=== PATIENT | female | born 1985 ===

== ENCOUNTER 2020-06-10 16:00 | Inpatient (IN) | payer OTHER ==
[2020-06-10] MEDS ORDERED: LACTATED RINGERS SOLUTION 1,000 ML/1,000 ML INFUS.BAG IV SCH (17:30)
--- NOTE | 2020-06-10 17:30 | HP ---
Past Medical History - Primary Care Physician PCP:: Mike Estrada - Admission Chief Complaint: Lower abdominal pain History of Present Illness: 35 yo , KAYLA 06/11/20, EGA 39 weeks 6 days presented with the above No bleeding but loosing fluid per vagina. History Source: Patient Limitations to Obtaining History: No Limitations - Past Medical History ...: 2 ...Para: 1 ... Weeks Gestation by Dates: 39.6 ...EDC by Dates: 06/11/20 - Past Surgical History Past Surgical History: Yes: Laminectomy Hx Myomectomy: No Hx Transabdominal Cerclage: No - Smoking History Smoking history: Never smoked - Alcohol/Substance Use Hx Alcohol Use: No - Social History Usual Living Arrangement: Yes: With Significant Other Do you think of yourself as: Straight/Heterosexual History of Recent Travel: No Home Medications - Allergies Allergies/Adverse Reactions: Allergies Allergy/AdvReac Type Severity Reaction Status Date / Time No Known Allergies Allergy Verified 06/10/20 16:51 - Home Medications Home Medications: Ambulatory Orders Pnv No.95/Ferrous Fum/Folic AC [ Formula] 1 each PO DAILY 06/10/20 Family Medical History Family History: Denies Review of Systems - Review of Systems Constitutional: reports: No Symptoms Eyes: reports: No Symptoms HENT: reports: No Symptoms Neck: reports: No Symptoms Cardiovascular: reports: No Symptoms Respiratory: reports: No Symptoms Gastrointestinal: reports: No Symptoms Genitourinary: reports: No Symptoms Breasts: reports: No Symptoms Reported Musculoskeletal: reports: No Symptoms Integumentary: reports: No Symptoms Neurological: reports: No Symptoms Endocrine: reports: No Symptoms Psychiatric: reports: No Symptoms Physical Exam - Maternity Constitutional: Yes: Well Nourished Eyes: Yes: WNL HENT: Yes: WNL Neck: Yes: WNL Cardiovascular: Yes: WNL Lungs: Clear to auscultation - Abdominal Exam/OB Fundal Height: 39 Number of Fetuses: Single Presentation: Vertex Contractions: Yes Regularity: Regular Intensity: Mild/Mod Monitor Mode: External Heart Rate (range): 140 Heart Rate Location: [facility] Category: I Accelerations: Uniform Decelerations: None - Vaginal Exam/OB Vaginal Bleeding: No Speculum Exam: No Dilatation (cm): 3 Effacement (%): 50% Amniotic Membrane Status: Ruptured Nitrazine Test: Positive Amniotic Fluid: Yes: Clear Presentation: Vertex/Position Station: -3 - Physical Exam Musculoskeletal: Yes: WNL Extremities: Yes: WNL Edema: No Integumentary: Yes: WNL ...Motor Strength: WNL Psychiatric: Yes: WNL Hemorrhage Risk Assessment - Risk Factors Medium Risk Factors: Yes: None High Risk Factors: Yes: None Risk Score: 1 Risk Level: Medium Risk Problem List - Problems (1) 39 weeks gestation of Code(s): Z3A.39 - 39 WEEKS GESTATION OF Assessment/Plan Full term gestation in labor Admit L and D for management
[2020-06-10 17:45] LABS: BASO % 0.1 % (0-2.0); EOS % 0.1 % (0-4.5); HEMATOCRIT 32.9 % (32.4-45.2); HEMOGLOBIN 10.5 GM/dL (10.7-15.3); LYMPH % 19.3 % (8-40); MCH 24.1 pg (25.7-33.7); MCHC 31.9 g/dl (32.0-36.0); MEAN CELL VOLUME 75.5 fl (80-96); MEAN PLT VOLUME 9.5 fl (7.5-11.1); MONO % 7.3 % (3.8-10.2); NEUT % 73.2 % (42.8-82.8); PLATELET COUNT 259 K/MM3 (134-434); RBC 4.36 M/mm3 (3.60-5.2); RDW 15.2 % (11.6-15.6); WHITE BLOOD COUNT 11.9 K/mm3 (4.0-10.0)
[2020-06-10 17:53] LABS: INR 1.02 (0.83-1.09)
[2020-06-10 17:55] LABS: ACTIVATED PTT 25.6 SECONDS (25.2-36.5)
[2020-06-10 18:00] VITALS: BMI 37.3
[2020-06-10 18:16] LABS: BLOOD UREA NITROGEN 8.1 mg/dL (7-18); CALCIUM 8.3 mg/dL (8.5-10.1); CREATININE 0.8 mg/dL (0.55-1.3); POTASSIUM 3.6 mmol/L (3.5-5.1)
[2020-06-10] MEDS ORDERED: FENTANYL/BUPIVACAINE/NS/PF - PCEA - 50 ML DISP.SYRIN EP ONE (19:38)
[2020-06-10] MEDS ORDERED: PCA PUMP NR ONE (19:38)
[2020-06-10] MEDS ORDERED: BUPIVACAINE HCL/PF 0.25% (2.5MG/ML) 10 ML VIAL ONE (19:40)
[2020-06-10] MEDS ORDERED: NALOXONE HCL 0.4 MG/ML VIAL IVPUSH PRN (20:06)
[2020-06-10] MEDS ORDERED: FENTANYL/BUPIVACAINE/NS/PF - PCEA - 50 ML DISP.SYRIN EP SCH (20:15)
--- NOTE | 2020-06-10 20:35 | PN ---
Progress Note (short form) - Note Progress Note: 35 year old at 39w6d admitted in early labor and ROM s/p epidural - had panic attack afterwards GBS negative Denies any complaints VSS VE /-3, meconium Contractions q 5 min Plan Pitocin Monitor VS Anticipate vaginal delivery
[2020-06-10] MEDS ORDERED: OXYTOCIN 30 UNITS in 0.9% NS 30 UNIT/500 ML INFUS.BAG IVPB SCH (21:15)
[2020-06-10] MEDS ORDERED: OXYTOCIN 30 UNITS in 0.9% NS 30 UNIT/500 ML INFUS.BAG IVPB ONE (21:17)
[2020-06-11] MEDS ORDERED: FENTANYL/BUPIVACAINE/NS/PF - PCEA - 50 ML DISP.SYRIN EP ONE (00:58)
--- NOTE | 2020-06-11 01:27 | PN ---
Progress Note (short form) - Note Progress Note: 40w in labor Pitocin s/p epidural Complains of pressure VE 8//-2 Cat 1 tracing Contractions q 3-4 min Continue with Pitocin Anticipate vaginal delivery
[2020-06-11] MEDS ORDERED: ELECTROLYTE-148 SOLN 1,000 ML IV SCH (01:30)
[2020-06-11] MEDS ORDERED: BUPIVACAINE HCL/PF 0.25% (2.5MG/ML) 10 ML VIAL ONE (02:05)
[2020-06-11] MEDS ORDERED: OXYTOCIN 20 UNITS in 0.9% NS 20 UNIT/1,000 ML INFUS.BAG IV ONE (02:42)
[2020-06-11] MEDS ORDERED: BENZOCAINE 20% 57 GM BOTTLE TP PRN (04:32)
[2020-06-11] MEDS ORDERED: WITCH HAZEL 50% (TUCKS) 40 PAD/JAR PAD TP PRN (04:32)
[2020-06-11] MEDS ORDERED: METHYLERGONOVINE MALEATE 0.2 MG/1 ML AMP IM PRN (04:32)
[2020-06-11] MEDS ORDERED: BISACODYL 10 MG SUPP.RECT RC PRN (04:32)
[2020-06-11] MEDS ORDERED: BENZOCAINE 28 GM HEMORRHOIDAL OINTMENT TP PRN (04:32)
--- NOTE | 2020-06-11 04:32 | PN ---
Delivery - Delivery Vaginal Delivery: No Problems Type of Anesthesia: Local, Epidural Episiotomy/Laceration: 2nd degree EBL (cc): 400 (vulvar edema) Delivery, Single - Feeding Plan Initial Plan: Elected not to breastfeed exclusively throughout hospitalization
[2020-06-11] MEDS: ACETAMINOPHEN 325 MG TABLET (FP) PO PRN ×3 (04:45→18:03)
[2020-06-11] MEDS: IBUPROFEN 600 MG TABLET (FP) PO PRN ×3 (04:45→18:04)
[2020-06-11 04:53] LABS: CORD BASE EXCESS -11.2 mmol/L (0-2); CORD PCO2 46.5 mmHg (30-78); CORD pH 7.181 (7.14-7.44)
[2020-06-11 04:55] LABS: CORD BASE EXCESS -9.5 mmol/L (0-2); CORD HCO3 17.9 mmHg (20-29); CORD PCO2 44.3 mmHg (30-78); CORD pH 7.225 (7.14-7.44)
[2020-06-12] MEDS: ACETAMINOPHEN 325 MG TABLET (FP) PO PRN ×4 (01:14→21:02)
[2020-06-12] MEDS: IBUPROFEN 600 MG TABLET (FP) PO PRN ×4 (01:15→21:03)
[2020-06-12 09:07] LABS: BASO % 0.3 % (0-2.0); EOS % 0.8 % (0-4.5); HEMATOCRIT 27.4 % (32.4-45.2); HEMOGLOBIN 8.9 GM/dL (10.7-15.3); LYMPH % 22.1 % (8-40); MCH 24.5 pg (25.7-33.7); MCHC 32.5 g/dl (32.0-36.0); MEAN CELL VOLUME 75.2 fl (80-96); MEAN PLT VOLUME 9.6 fl (7.5-11.1); MONO % 5.1 % (3.8-10.2); NEUT % 71.7 % (42.8-82.8); PLATELET COUNT 218 K/MM3 (134-434); RBC 3.64 M/mm3 (3.60-5.2); RDW 15.2 % (11.6-15.6); WHITE BLOOD COUNT 15.1 K/mm3 (4.0-10.0)
[2020-06-12] MEDS ORDERED: DIPHTH,PERTUSS(ACELL),TET 0.5 ML DISP.SYRIN IM ONE (10:00)
--- NOTE | 2020-06-12 13:35 | PN ---
Post Progress Note Post Day: 1 Type of Delivery: Vital Signs: Vital Signs Temperature 97.9 F 06/12/20 10:00 Pulse Rate 80 06/12/20 10:00 Respiratory Rate 18 06/12/20 10:00 Blood Pressure 120/80 06/12/20 10:00 O2 Sat by Pulse Oximetry (%) 100 06/11/20 05:15 Breast Exam: Yes: Soft Uterus: Yes: Fundus Firm, Fundus below umbilicus, Non-tender Abdomen/GI: Yes: Abdomen soft, Tolerating PO Lochia: Yes: Rubra Lochia, amount: Small Extremities: Yes: Calves non-tender Activity: Ambulating - Labs Labs: CBC WBC 15.1 K/mm3 (4.0-10.0) H 06/12/20 08:46 RBC 3.64 M/mm3 (3.60-5.2) 06/12/20 08:46 Hgb 8.9 GM/dL (10.7-15.3) L 06/12/20 08:46 Hct 27.4 % (32.4-45.2) L D 06/12/20 08:46 MCV 75.2 fl (80-96) L 06/12/20 08:46 MCH 24.5 pg (25.7-33.7) L 06/12/20 08:46 MCHC 32.5 g/dl (32.0-36.0) 06/12/20 08:46 RDW 15.2 % (11.6-15.6) 06/12/20 08:46 Plt Count 218 K/MM3 (134-434) 06/12/20 08:46 MPV 9.6 fl (7.5-11.1) 06/12/20 08:46 Absolute Neuts (auto) 10.8 K/mm3 (1.5-8.0) H 06/12/20 08:46 Neutrophils % 71.7 % (42.8-82.8) 06/12/20 08:46 Lymphocytes % 22.1 % (8-40) 06/12/20 08:46 Monocytes % 5.1 % (3.8-10.2) 06/12/20 08:46 Eosinophils % 0.8 % (0-4.5) D 06/12/20 08:46 Basophils % 0.3 % (0-2.0) 06/12/20 08:46 Nucleated RBC % 0 % (0-0) 06/12/20 08:46 Problem List - Problems (1) 39 weeks gestation of Code(s): Z3A.39 - 39 WEEKS GESTATION OF Assessment/Plan S/P , ppd # 1, with no complaints Continue management
[2020-06-12] MEDS: FERROUS SO4 325 MG TABLET (FP) PO SCH ×2 (15:25→21:02)
[2020-06-12] MEDS: PRENATAL VITAMINS W/ FOLIC ACID TABLET (FP) PO SCH (15:25)
[2020-06-12] MEDS: DOCUSATE SODIUM 100 MG CAPSULE (FP) PO SCH (15:25)
[2020-06-12 20:39] VITALS: PULSE 83
[2020-06-12] MEDS ORDERED: SENNOSIDES/DOCUSATE COMBO (SENNA PLUS) TABLET (UD) PO PRN (22:00)
[2020-06-13] MEDS: ACETAMINOPHEN 325 MG TABLET (FP) PO PRN (08:53)
[2020-06-13] MEDS: IBUPROFEN 600 MG TABLET (FP) PO PRN (08:53)
[2020-06-13] MEDS: DOCUSATE SODIUM 100 MG CAPSULE (FP) PO SCH (09:00)
[2020-06-13] MEDS: FERROUS SO4 325 MG TABLET (FP) PO SCH (09:00)
[2020-06-13] MEDS: PRENATAL VITAMINS W/ FOLIC ACID TABLET (FP) PO SCH (09:00)
[2020-06-13 10:16] VITALS: BP 126/81; TEMP 97.9
--- NOTE | 2020-06-13 11:45 | DS ---
Physical Exam-MANAGER UI Vital Signs: Vital Signs Temperature 97.9 F 06/13/20 10:00 Pulse Rate 83 06/13/20 10:00 Respiratory Rate 18 06/13/20 10:00 Blood Pressure 126/81 06/13/20 10:00 O2 Sat by Pulse Oximetry (%) 100 06/11/20 05:15 Labs: CBC, BMP 06/12/20 08:46 06/10/20 16:55 Delivery - Delivery Vaginal Delivery: No Problems Type of Anesthesia: Epidural Episiotomy/Laceration: 2nd degree EBL (cc): 400 Delivery, Single - Stages of Labor Date 1st Stage Initiatied: 06/10/20 Time 1st Stage Initiated: 20:15 Date 2nd Stage Initiated: 06/11/20 Time 2nd Stage Initiated: 03:30 Date of Delivery: 06/11/20 Time of Delivery: 04:04 Time Placenta Delivered: 04:06 - Condition of Garden Machinery Mechanic/Casing Cooker Present: No Gender: Male Weight: 3.77 kg Position: Right, OA Total Hours ROM (Hrs/Mins): 13h 4m - 1 Minute Total Score: 8 5 Minutes Total Score: 9 - Feeding Plan Initial Plan: Elected not to breastfeed exclusively throughout hospitalization Remarks - Remarks Remarks: pt. without complaints. vss - af abd: soft, nt, fundus firm ve: intact, min lochia ext: no calf tenderness v/l a.p s.p doing well ppd 2 plan d/c to home today has f/u appt w pmd already scheduled asymptomatic anemia pt. states additional iron makes her constipated so will continue with pnv w iron only. drink plenty of water Discharge Summary Problems reviewed: Yes Reason For Visit: ADMIT LABOR Current Active Problems 39 weeks gestation of (Acute) Procedures: Principal: Hospital Course: admitted in labor underwent uncomplicated PP course uneventful Condition: Good - Instructions Diet, Activity, Other Instructions: regular. activity as tolerated, but avoid strenuous activity, heavy lifting or i ntercourse. pericare Disposition: HOME - Home Medications Comprehensive Discharge Medication List: Ambulatory Orders Pnv No.95/Ferrous Fum/Folic AC [ Formula Tablet] 1 each PO DAILY 06/10/20 Ibuprofen [Motrin -] 600 mg PO Q6H PRN #50 tablet 06/13/20 Samantha Evangelista 50% (Eleanor) [Tucks Pads -] 1 pad TP PRN PRN pad 06/13/20
== END 2020-06-13 13:10 | disposition home or self-care (01) | DRG 807 ==
LOC: JDEL 16:00 → JLDR 16:15 → J3W 06-11 05:40
PROVIDERS: ADMIT Obstetrics & Gynecology; ATTEND Obstetrics & Gynecology
PROC: 3E033VJ Introduction of Other Hormone into Peripheral Vein, Percutaneous Approach (ICD-10-PCS; principal; 2020-06-10)
PROC: 10E0XZZ Delivery of Products of Conception, External Approach (ICD-10-PCS; 2020-06-11)
DX: O70.1 Second degree perineal laceration during delivery (principal); Z37.0 Single live birth; F41.0 Panic disorder [episodic paroxysmal anxiety]; O99.03 Anemia complicating the puerperium; D64.9 Anemia, unspecified; Z3A.39 39 weeks gestation of pregnancy
CPT/HCPCS: 36415; 36600; 59409; 80048; 82803; 85025; 85610; 85730; 86780; 86850; 86900; 86901; 90715; U0003